=== PATIENT | female | born 1970 | race Caucasian/White ===

== ENCOUNTER → 2019-02-18 | Outpatient (REF) | payer MEDICAID, OTHER ==
[2019-02-22 14:50] LABS: HPV HYBRID CAPTURE II Negative (Negative)
== END ==
LOC: M LAB LCGH 14:04
PROVIDERS: ATTEND Physician Assistant
DX: Z12.4 Encounter for screening for malignant neoplasm of cervix (principal); N87.0 Mild cervical dysplasia

== ENCOUNTER → 2022-05-05 | Outpatient (REF) | payer OTHER, MEDICAID | LOC: M SFHCDERM 12:39 | PROVIDERS: ATTEND Nurse Practitioner Family | DX: R21 Rash and other nonspecific skin eruption (principal) ==

== ENCOUNTER 2022-09-19 14:24 | Outpatient (CLI) | payer OTHER ==
[~2022-09-19] VITALS: Ht 170.2 cm; Wt 63.6 kg
[~2022-09-19 14:24] MED LIST: UNRESOLVED CLARIFICATION ENTRY XX SCH
[2022-09-19 14:30] VITALS: BP 147/98
[2022-09-19] MEDS ORDERED: TRAZ-257 PO (14:57)
[2022-09-19] MEDS ORDERED: PRED20TA PO (14:57)
[2022-09-19] MEDS ORDERED: methylPREDNISolone 1,000 MG, VIAL MATE ADAPTER 1 EACH in NS 250 ML IV ONE (15:30)
[2022-09-19 16:00] VITALS: BP 141/89
== END 2022-09-19 16:00 | disposition home or self-care (01) ==
LOC: M INFU 14:24
PROVIDERS: ATTEND Psychiatry & Neurology Neurology
DX: G35 Multiple sclerosis (principal)
CPT/HCPCS: 96365; J2930

== ENCOUNTER 2022-09-20 15:37 | Outpatient (CLI) | payer OTHER ==
[~2022-09-20 15:37] MED LIST changes: +PRED20TA PO; +TRAZ-257 PO
[2022-09-20 15:40] VITALS: BP 149/74
[2022-09-20] MEDS ORDERED: methylPREDNISolone 1,000 MG, VIAL MATE ADAPTER 1 EACH in NS 250 ML IV ONE (16:00)
[2022-09-20 17:00] VITALS: BP 137/79
== END 2022-09-20 17:00 | disposition home or self-care (01) ==
LOC: M INFU 15:37
PROVIDERS: ATTEND Psychiatry & Neurology Neurology
DX: G35 Multiple sclerosis (principal)
CPT/HCPCS: 96365; J2930

== ENCOUNTER 2022-09-21 14:40 | Outpatient (CLI) | payer OTHER ==
[~2022-09-21] VITALS: Ht 170.2 cm; Wt 63.6 kg
[2022-09-21 14:40] VITALS: BP 151/92
[~2022-09-21 14:40] MED LIST changes: +methylPREDNISolone 1,000 MG, VIAL MATE ADAPTER 1 EACH in NS 250 ML IV ONE
[2022-09-21 15:50] VITALS: BP 168/87
== END 2022-09-21 16:00 | disposition home or self-care (01) ==
LOC: M INFU 14:40
PROVIDERS: ATTEND Psychiatry & Neurology Neurology
DX: G35 Multiple sclerosis (principal)
CPT/HCPCS: 96365; J2930

== ENCOUNTER 2022-09-23 15:25 | Outpatient (CLI) | payer OTHER ==
[2022-09-23 15:25] VITALS: BP 160/94
[~2022-09-23 15:25] MED LIST changes: -UNRESOLVED CLARIFICATION ENTRY XX SCH; -methylPREDNISolone 1,000 MG, VIAL MATE ADAPTER 1 EACH in NS 250 ML IV ONE
[2022-09-23] MEDS ORDERED: methylPREDNISolone 1,000 MG, VIAL MATE ADAPTER 1 EACH in NS 250 ML IV ONE (15:30)
[2022-09-23 16:40] VITALS: BP 142/80
== END 2022-09-23 16:40 | disposition home or self-care (01) ==
LOC: M INFU 15:25
PROVIDERS: ATTEND Psychiatry & Neurology Neurology
DX: G35 Multiple sclerosis (principal)
CPT/HCPCS: 96365; J2930

== ENCOUNTER 2023-11-13 06:54 | Outpatient (CLI) | payer OTHER ==
[~2023-11-13] VITALS: Ht 170.2 cm; Wt 61.3 kg
[2023-11-13 07:00] VITALS: BP 129/80; O2SAT 100
[2023-11-13] MEDS: diphenhydrAMINE 25MG CAP PO ONE (07:30)
[2023-11-13] MEDS: methylPREDNISolone 125MG 2ML VIAL IV ONE (07:30)
[2023-11-13] MEDS: ACETAMINOPHEN TAB 650MG DOSE (2X325MG) PO ONE (07:30)
[2023-11-13] MEDS: OCRELIZUMAB 600 MG in NS 500 ML IV ONE (07:54)
[2023-11-13 09:00] VITALS: BP 123/64; O2SAT 100
[2023-11-13 09:30] VITALS: BP 123/70; O2SAT 100
[2023-11-13 10:00] VITALS: BP 120/68; O2SAT 100
[2023-11-13 10:30] VITALS: BP 113/68; O2SAT 99
[2023-11-13 11:47] VITALS: BP 131/70; O2SAT 100
== END 2023-11-13 11:50 ==
LOC: M INFU 06:54
PROVIDERS: ATTEND Psychiatry & Neurology Neurology
DX: G35 Multiple sclerosis (principal)
CPT/HCPCS: 96365; 96366; 96367; J2350; J2919

== ENCOUNTER 2024-05-16 07:15 | Outpatient (CLI) | payer OTHER ==
[~2024-05-16] VITALS: Ht 170.2 cm; Wt 59.0 kg
[2024-05-16 07:15] VITALS: BP 152/70; O2SAT 98
[2024-05-16] MEDS: ACETAMINOPHEN 325 MG TAB PO ONE (07:25)
[2024-05-16] MEDS: diphenhydrAMINE 25MG CAP PO ONE (07:25)
[2024-05-16] MEDS: methylPREDNISolone 125MG 2ML VIAL IV ONE (07:25)
[2024-05-16] MEDS: OCRELIZUMAB 600 MG in NS 500 ML IV ONE (07:46)
[2024-05-16 08:45] VITALS: BP 127/60; O2SAT 100
[2024-05-16 09:30] VITALS: BP 129/74; O2SAT 98
[2024-05-16 10:15] VITALS: BP 124/58; O2SAT 100
[2024-05-16 12:55] VITALS: BP 125/75; O2SAT 97
== END 2024-05-16 13:15 ==
LOC: M INFU 07:15
PROVIDERS: ATTEND Psychiatry & Neurology Neurology
DX: G35 Multiple sclerosis (principal)
CPT/HCPCS: 96365; 96366; 96367; J2350; J2919